=== PATIENT | female | born 1955 ===

== ENCOUNTER 2020-08-14 05:12 | Day surgery (SDC) | payer OTHER ==
[~2020-08-14 05:12] MED LIST: CLONAZEPAM0.25 MG PO; OMEGA 3 500 SO1 EACH PO; PROCARD PO; TENORMIN50 M1 PO; ZOLOFT25 MG PO; [UNRECOGNIZED DRUG - OTHER] PO
[2020-08-14] MEDS ORDERED: PERCOCET 5-3251 EACH PO (08:34)
[2020-08-14] MEDS ORDERED: RECTICARE30 GM TOP (08:34)
[2020-08-14] MEDS ORDERED: DERMOPLAST FIRS78 GM TOP (08:35)
== END 2020-08-14 11:25 | disposition home or self-care (01) ==
LOC: CIR.AMB 05:12
PROVIDERS: ATTEND Surgery
DX: K62.82 Dysplasia of anus (principal); K64.8 Other hemorrhoids; K64.4 Residual hemorrhoidal skin tags; Z20.822 Contact with and (suspected) exposure to COVID-19